=== PATIENT | male | born 1935 | race Hispanic/Latino ===

== ENCOUNTER 2017-08-12 08:57 | Day surgery (SDC) | payer MEDICARE, BC ==
[2017-08-05 06:36] VITALS: BMI 27.1
[2017-08-12 09:38] LABS: BASO # 0.02 K/mm3 (0.0-2.0); BASO % 0.3 % (0.0-3.0); EOS # 0.2 (0.0-0.7); EOS % 2.5 % (1.5-5.0); GRAN # 5.99 (1.4-6.5); GRAN % 75.6 % (50.0-68.0); HEMOGLOBIN 14.8 g/dL (14.0-18.0); LYMPH # 1.2 (1.2-3.4); LYMPH % 14.5 % (22.0-35.0); MEAN CELL VOLUME 98.9 fl (80.0-105.0); MEAN CORPUSCULAR HEMOGLOBIN 33.9 pg (25.0-35.0); MEAN CORPUSCULAR HGB CONC 34.3 g/dl (31.0-37.0); MEAN PLATELET VOLUME 9.2 fl (7.0-11.0); MONO # 0.6 (0.1-0.6); MONO % 7.1 % (1.0-6.0); RBC 4.36 10^6/uL (3.5-6.1); RED CELL DISTRIBUTION WIDTH 13.8 % (11.5-14.5); WHITE BLOOD COUNT 7.9 10^3/ul (4.5-11.0)
[2017-08-12 09:46] LABS: BLOOD UREA NITROGEN 18 mg/dL (7-21); CALCIUM 9.6 mg/dL (8.4-10.5); GFR AFRICAN-AMERICAN > 60; GFR NON-AFRICAN AMERICAN 53
[2017-08-12 09:50] LABS: INR 1.1 (0.93-1.08); PARTIAL THROMBOPLASTIN TIME 33.1 Seconds (25.1-36.5); PROTHROMBIN TIME 12.7 SECONDS (9.4-12.5)
[2017-08-12] MEDS ORDERED: Lidocaine 1% Inj (20ml) ONE (10:46)
[2017-08-12] MEDS ORDERED: Midazolam 2 MG/2 ML VIAL ONE (10:46)
[2017-08-12] MEDS ORDERED: Oxycodone/Acetaminophen 5/325 mg Tab PO PRN (11:44)
[2017-08-12] MEDS ORDERED: Sodium Chloride 0.45% 1,000 ML IV SCH (11:45)
[2017-08-12 12:54] VITALS: RESP 18; TEMP 97.9; O2SAT 94
[2017-08-12 14:08] VITALS: BP 141/79; PULSE 63
--- NOTE | 2017-08-12 14:17 | CT ---
PROCEDURE: CT guided liver biopsy. HISTORY: History lung CA. History nasal CA. New 4.5 cm left liver mass. Evaluate for metastasis PHYSICIAN(S): Brady Trinidad MD. TECHNIQUE: The relative risks and indications of the procedure were explained to the patient and consent obtained. The patient was placed supine on the CT scanner and preliminary images through the liver obtained. Conscious sedation and monitoring were provided throughout the procedure by a nurse. There is a 4 cm low-attenuation mass in the medial segment left lobe of the liver adjacent to the falciform ligament.. A oblique anterior approach was selected and the area prepped and draped in the usual sterile fashion. 1% Xylocaine was used to anesthetize the skin and soft tissues. A 17-gauge guiding needle was advanced into the 4 cm liver mass. Its position was confirmed with CT. Using coaxial technique, multiple core biopsies were obtained. The postprocedure images show no evidence of significant hemorrhage. IMPRESSION: 1. CT-guided liver biopsy as described above.
== END 2017-08-12 13:45 | disposition home or self-care (01) ==
LOC: SDS 08:57
PROVIDERS: ATTEND Radiology Vascular & Interventional Radiology
DX: C78.7 Secondary malignant neoplasm of liver and intrahepatic bile duct (principal); Z85.118 Personal history of other malignant neoplasm of bronchus and lung; Z85.22 Personal history of malignant neoplasm of nasal cavities, middle ear, and accessory sinuses; I10 Essential (primary) hypertension
CPT/HCPCS: 36415; 47000; 77012; 80048; 85025; 85610; 85730; 88307; J2250; J2405; J3010; J7030